=== PATIENT | male | born 1995 | race Two or more races ===

== ENCOUNTER 2022-12-04 18:49 | Emergency (ER) | payer OTHER ==
[~2022-12-04] VITALS: Ht 167.6 cm; Wt 86.3 kg
[2022-12-04] MEDS ORDERED: PROCHLORPERAZINE EDISYLATE 5 MG/ML 2ML VIAL IV ONE (19:45)
[2022-12-04] MEDS ORDERED: PANTOPRAZOLE 40 MG/10 ML VIAL INJ IV ONE (19:45)
[2022-12-04] MEDS ORDERED: SODIUM CHLORIDE 0.9% 1,000 ML IVB ONE (19:45)
[2022-12-04] MEDS ORDERED: MORPHINE SULFATE 4 MG/ML SYR/VIAL IV ONE (19:45)
[2022-12-04 20:24] LABS: Basophils # (auto) 0.1 10 ^3/uL (0-0.2); Basophils % (auto) 0.5 % (0.0-2.0); Eosinophils # (auto) 0 10 ^3/uL (0-0.8); Eosinophils % (auto) 0.2 % (0.0-7.0); Hematocrit 50.1 % (41.0-53.0); Hemoglobin 17.4 g/dL (13.5-17.5); Lymphocytes # (auto) 1.3 10 ^3/uL (0.4-5.4); Lymphocytes % (auto) 9.5 % (10.0-50.0); Mean Corpuscular Hemoglobin 30.6 pg (28.0-32.0); Mean Corpuscular Hgb Conc. 34.6 g/dL (32.0-36.0); Mean Corpuscular Volume 88.4 fL (80.0-100.0); Monocytes # (auto) 0.8 10 ^3/uL (0-1.3); Monocytes % (auto) 5.5 % (0.0-12.0); Neutrophils # (auto) 11.7 10 ^3/uL (1.6-8.6); Neutrophils % (auto) 84.3 % (37.0-80.0); Nucleated Red Blood Cells % 0.3 %; Red Blood Cells 5.68 10^6/uL (4.5-5.90); White Blood Cell 13.9 10^3/uL (4.4-10.8)
[2022-12-04 20:50] LABS: Alanine Aminotransferase 92 U/L (7-40); Alkaline Phosphatase 92 U/L (46-116); Anion Gap 11.4 (5-15); Aspartate Aminotransferase 45 U/L (13-40); BUN/Creatinine Ratio 12.8 (10.0-20.0); Bilirubin, Total 0.7 mg/dL (0.2-1.0); Blood Urea Nitrogen 12 mg/dL (9-23); Carbon Dioxide 23.6 mmol/L (20-30); Chloride 103 mmol/L (98-107); Glucose 116 mg/dL (74-106); Lipase 285 U/L (12-53); Potassium 4.6 mmol/L (3.5-5.1); Sodium 138 mmol/L (136-145); Total Protein 7.9 g/dL (5.7-8.2)
[2022-12-04] MEDS ORDERED: PANT40TA2 PO (21:45)
[2022-12-04] MEDS ORDERED: MORPHINE SULFATE INJ 2 MG/ml SYRG IM ONE (21:45)
[2022-12-04] MEDS ORDERED: ZOFR4T PO (21:45)
[2022-12-04 22:04] LABS: Amphetamine Screen, Urine Neg (NEGATIVE); Barbiturate Scree,Urine Neg (NEGATIVE); Benzodiazephine Screen, Urine Neg (NEGATIVE); Cannabinoid Screen, Urine Neg (NEGATIVE); Cocaine Screen, Urine Neg (NEGATIVE); Opiate Scree,Urine Neg (NEGATIVE); Phencyclidine Screen, Urine Neg (NEGATIVE); Urine Bacteria NONE SEEN /hpf (None Seen); Urine Blood Negative /uL (Negative); Urine Clarity Clear (Clear); Urine Color Yellow (Yellow); Urine Mucus FEW (None Seen); Urine Protein, UAD 1+ (Negative); Urine Specific Gravity 1.025 (1.001-1.035); Urine Urobilinogen Normal (Negative); Urine WBC 1 /hpf (0 - 3); Urine pH 6.5 (5.0-8.0)
[2022-12-04 22:35] VITALS: BP 115/81; PULSE 73; RESP 18; TEMP 98.1; O2SAT 97
== END 2022-12-04 22:38 | disposition home or self-care (01) ==
LOC: ER 18:49
DX: K29.00 Acute gastritis without bleeding (principal); Z98.890 Other specified postprocedural states; Z79.899 Other long term (current) drug therapy
CPT/HCPCS: 36415; 74176; 76705; 80053; 80307; 81001; 83690; 85025; 96361; 96372; 96374; 96375; 99285; C9113; J0780; J2270; J7030

== ENCOUNTER 2023-06-28 22:08 | Emergency (ER) | payer OTHER ==
[~2023-06-28] VITALS: Ht 167.6 cm; Wt 86.0 kg
[~2023-06-28 22:08] MED LIST: PANT40TA2 PO; ZOFR4T PO
[2023-06-28 22:43] LABS: Urine Bacteria NONE SEEN /hpf (None Seen); Urine Blood Negative /uL (Negative); Urine Clarity Clear (Clear); Urine Color Yellow (Yellow); Urine Mucus FEW (None Seen); Urine Protein, UAD 1+ (Negative); Urine Urobilinogen Normal (Negative); Urine WBC 1 /hpf (0 - 3); Urine pH 6.5 (5.0-8.0)
[2023-06-28 22:58] LABS: Basophils # (auto) 0.1 10 ^3/uL (0-0.2); Basophils % (auto) 0.4 % (0.0-2.0); Eosinophils # (auto) 0 10 ^3/uL (0-0.8); Eosinophils % (auto) 0.1 % (0.0-7.0); Hematocrit 50.5 % (41.0-53.0); Hemoglobin 17.1 g/dL (13.5-17.5); Lymphocytes # (auto) 1.4 10 ^3/uL (0.4-5.4); Lymphocytes % (auto) 5.9 % (10.0-50.0); Mean Corpuscular Hemoglobin 30.2 pg (28.0-32.0); Mean Corpuscular Hgb Conc. 33.9 g/dL (32.0-36.0); Mean Corpuscular Volume 89.2 fL (80.0-100.0); Monocytes # (auto) 1.6 10 ^3/uL (0-1.3); Monocytes % (auto) 6.7 % (0.0-12.0); Neutrophils # (auto) 20.6 10 ^3/uL (1.6-8.6); Neutrophils % (auto) 86.9 % (37.0-80.0); Nucleated Red Blood Cells % 0.1 %; Red Blood Cells 5.66 10^6/uL (4.5-5.90); Red Cell Distribution Width 13.8 % (11.8-14.3); White Blood Cell 23.7 10^3/uL (4.4-10.8)
[2023-06-28 23:00] VITALS: PULSE 83; RESP 20; O2SAT 96
[2023-06-28 23:13] LABS: Alanine Aminotransferase 86 U/L (7-40); Albumin 5.1 g/dL (3.2-4.8); Alkaline Phosphatase 90 U/L (46-116); Anion Gap 7 (5-15); Aspartate Aminotransferase 34 U/L (13-40); BUN/Creatinine Ratio 14.3 (10.0-20.0); Bilirubin, Total 1.2 mg/dL (0.2-1.0); Blood Urea Nitrogen 15 mg/dL (9-23); Calcium 10.3 mg/dL (8.7-10.4); Carbon Dioxide 28 mmol/L (20-30); Chloride 100 mmol/L (98-107); Glucose 144 mg/dL (74-106); Lipase 116 U/L (12-53); Potassium 3.6 mmol/L (3.5-5.1); Sodium 135 mmol/L (136-145)
[2023-06-28 23:14] LABS: Total Protein 8.3 g/dL (5.7-8.2)
[2023-06-28] MEDS: SODIUM CHLORIDE 0.9% 1,000 ML IV ONE (23:40)
[2023-06-28] MEDS: cefTRIAXone 1GM/50ML D5W 100 ML IV ONE (23:56)
[2023-06-28] MEDS: cefTRIAXone 2GM/50ML D5W 50 ML IV ONE (23:57)
[2023-06-29 00:44] VITALS: TEMP 98.4
[2023-06-29] MEDS: ONDANSETRON HCL 4 MG/2 ML VIAL ONE (00:53)
[2023-06-29] MEDS: ONDANSETRON HCL 4 MG/2 ML VIAL IV ONE (00:54)
[2023-06-29] MEDS ORDERED: MET500T PO (01:24)
[2023-06-29] MEDS ORDERED: CIPR500T4 PO (01:24)
[2023-06-29] MEDS ORDERED: ZOFR4T PO (01:24)
[2023-06-29] MEDS ORDERED: DICY10CA PO (01:25)
[2023-06-29] MEDS: PANTOPRAZOLE 40 MG/10 ML VIAL INJ IV ONE (01:25)
[2023-06-29 03:00] VITALS: BP 144/92; PULSE 93; RESP 17; O2SAT 94
== END 2023-06-29 03:42 | disposition home or self-care (01) ==
LOC: ER 22:08
DX: K52.9 Noninfective gastroenteritis and colitis, unspecified (principal); K76.0 Fatty (change of) liver, not elsewhere classified; D72.829 Elevated white blood cell count, unspecified; R79.89 Other specified abnormal findings of blood chemistry; R10.11 Right upper quadrant pain; R10.31 Right lower quadrant pain; Z79.899 Other long term (current) drug therapy
CPT/HCPCS: 36415; 74176; 80053; 81001; 83605; 83690; 85025; 87040; 96365; 96375; 99285; C9113; J0696; J2405